=== PATIENT | male | born 1945 | race African-American/Black ===

== ENCOUNTER 2020-03-11 18:19 | Emergency (ER) | payer MEDICARE, OTHER ==
[~2020-03-11] VITALS: Ht 182.9 cm; Wt 90.7 kg
--- NOTE | 2020-03-11 18:32 | Emergency Room Report ---
History of Present Illness General Chief Complaint: Hypertension Source: Patient, EMS Present Illness HPI Patient is a 74-year-old male past medical history of hypertension who presents to the ER complaining of elevated blood pressure. Patient is a very poor historian. He is alert and oriented x3 was brought in from the front of his apartment complex by EMS. Patient states that his blood pressure has been high for the past several days. When I asked him how he knows he says he just knows. He denies having any headache, dizziness, chest pain or shortness of breath. He denies any focal weakness. Patient walks with a cane. When I asked him if he has been doing that for a long time he cannot give me a definitive answer. Patient also has lower extremity edema which she states that he does not know how long its been there for. Patient is unkept. 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: No Patient History Reviewed Nursing Documentation: PMH: Agreed; PSxH: Agreed Nursing Documentation-PMH Hx Hypertension: Yes Hx Asthma: Yes Review of Systems All Other Systems: limited - Poor historian Physical Exam Vital Signs Date Time Temp Pulse Resp B/P (MAP) Pulse Ox O2 Delivery O2 Flow Rate FiO2 03/11/20 18:14 98.4 84 14 164/96 (118) 97 Room Air Sp02 EP Interpretation: reviewed, normal General Appearance: no apparent distress, alert, non-toxic Head: normocephalic, atraumatic ENT: normal pharynx, no angioedema Neck: full range of motion, supple, no meningismus Respiratory: no respiratory distress, no accessory muscle use Cardiovascular #1: regular rate, rhythm Gastrointestinal: non tender, soft, no guarding, no rebound Rectal: deferred Musculoskeletal: other - Bilateral lower extremity edema left greater than right with left calf tenderness very dry skin of the bilateral lower extremities 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 Patient given 10 mg of IV hydralazine and blood pressure temporarily improved. While in the emergency room patient's blood pressure again elevated. Patient given a second dose of hydralazine. Patient's labs demonstrate no evidence for endorgan damage. Patient will be transferred for further treatment and evaluation of his malignant hypertension. Laboratory Tests Test 03/11/20 18:35 White Blood Count 9.2 K/UL (4.8-10.8) Red Blood Count 5.39 M/UL (4.70-6.10) Hemoglobin 15.4 G/DL (14.2-18.0) Hematocrit 48.2 % (42.0-52.0) Mean Corpuscular Volume 89 FL (80-99) Mean Corpuscular Hemoglobin 28.6 PG (27.0-31.0) Mean Corpuscular Hemoglobin Concent 32.0 G/DL (32.0-36.0) Red Cell Distribution Width 13.1 % (11.6-14.8) Platelet Count 157 K/UL (150-450) Mean Platelet Volume 9.2 FL (6.5-10.1) Neutrophils (%) (Auto) 55.9 % (45.0-75.0) Lymphocytes (%) (Auto) 21.9 % (20.0-45.0) Monocytes (%) (Auto) 7.6 % (1.0-10.0) Eosinophils (%) (Auto) 12.6 % (0.0-3.0) H Basophils (%) (Auto) 1.9 % (0.0-2.0) Prothrombin Time 11.3 SEC (9.30-11.50) Prothrombin Time INR 1.0 (0.9-1.1) Activated Partial Thromboplast Time 30 SEC (23-33) Sodium Level 137 MMOL/L (136-145) Potassium Level 4.4 MMOL/L (3.5-5.1) Chloride Level 100 MMOL/L (98-107) Carbon Dioxide Level 32 MMOL/L (21-32) Anion Gap 5 mmol/L (5-15) Blood Urea Nitrogen 10 mg/dL (7-18) Creatinine 0.8 MG/DL (0.55-1.30) Estimated Glomerular Filtration Rate > 60 mL/min (>60) Glucose Level 124 MG/DL (74-106) H Calcium Level 8.8 MG/DL (8.5-10.1) Magnesium Level 2.1 MG/DL (1.8-2.4) Total Bilirubin 0.5 MG/DL (0.2-1.0) Aspartate Amino Transferase (AST) 27 U/L (15-37) Alanine Aminotransferase (ALT) 16 U/L (12-78) Alkaline Phosphatase 88 U/L (46-116) Troponin I 0.017 ng/mL (0.000-0.056) Pro-B-Type Natriuretic Peptide 352 pg/mL (0-125) H Total Protein 8.2 G/DL (6.4-8.2) Albumin 3.8 G/DL (3.4-5.0) Globulin 4.4 g/dL Albumin/Globulin Ratio 0.9 (1.0-2.7) L EKG Diagnostic Results Troponin ordered: Yes When was troponin ordered?: Mar 11, 2020 EKG Time: 18:41 EP Interpretation: Eloisa Maynard MD Rhythm: other - Sinus tachycardia with PACs ST Segments: no acute changes ASA given to the pt in ED: No Rhythm Strip Diag. Results Rhythm Strip Time: 18:43 EP Interpretation: yes - Eloisa Maynard MD Rate: 97 bpm Rhythm: NSR, no PVC's, no ectopy Chest X-Ray Diagnostic Results Chest X-Ray Diagnostic Results : Chest X-Ray Ordered: Yes # of Views/Limited/Complete: 1 View Indication: Other - Elevated blood pressure EP Interpretation: Yes Interpretation: no consolidation, no effusion, no pneumothorax, no acute cardiopulmonary disease Impression: No acute disease Electronically Signed by: Eloisa Maynard MD Last Vital Signs Date Time Temp Pulse Resp B/P (MAP) Pulse Ox O2 Delivery O2 Flow Rate FiO2 03/11/20 18:14 98.4 84 14 164/96 (118) 97 Room Air Disposition: ADMITTED INPATIENT - [facility] Condition: Critical Physician Consult: Dr. Galvin Additional Instructions: Please note that this report is being documented using [employer] technology. This can lead to erroneous entry secondary to incorrect interpretation by the dictating instrument. Eloisa Maynard M.D. Mar 11, 2020 18:32
--- NOTE | 2020-03-11 18:42 | NUR ---
ED Nurse Note: Pt was found outside apartment complex stating that he felt blood pressure was high. BP was 165/64. Pt is alert and orientedx4, ambulatory. Pt has been seen by [facility]. IV established. Pt states he has bilateral knee pain 6/10. Bilateral leg edema non-pitting.
[2020-03-11 18:56] VITALS: BP 200/109
--- NOTE | 2020-03-11 19:17 | Diagnostic Imaging Report ---
EXAM: US Duplex Bilateral Lower Extremities Veins CLINICAL HISTORY: 74-year-old male past medical history of hypertension who presents to the ER complaining of elevated blood pressure. Patient is a very poor historian. He is alert and oriented x3 was brought in from the front of his apartment complex by EMS. Patient states that his blood pressure has been high for the past several days. When I asked him how he knows he says he just knows. He denies having any headache, dizziness, chest pain or shortness of breath. He denies any focal weakness. Patient walks with a cane. When I asked him if he has been doing that for a long time he cannot give me a definitive answer. Patient also has lower extremity edema which she states that he does not know how long its been there for. Patient is unkept. TECHNIQUE: Real-time duplex ultrasound scan of the bilateral lower extremity veins integrating B-mode two-dimensional vascular structure, Doppler spectral analysis, color flow Doppler imaging and compression. COMPARISON: No relevant prior studies available. FINDINGS: Right deep veins: Unremarkable. No DVT in the right common femoral, femoral, proximal deep femoral or popliteal veins. The veins demonstrate normal color flow, are normally compressible, with normal phasic flow and/or augmentation response. Right superficial veins: Unremarkable. No thrombus in the visualized right great saphenous vein. Left deep veins: Unremarkable. No DVT in the left common femoral, femoral, proximal deep femoral or popliteal veins. The veins demonstrate normal color flow, are normally compressible, with normal phasic flow and/or augmentation response. Left superficial veins: Unremarkable. No thrombus in the visualized left great saphenous vein. Soft tissues: No acute findings. No popliteal cyst. IMPRESSION: No venous thrombosis
[2020-03-11 19:22] LABS: BASOPHILS % (AUTO) 1.9 % (0.0-2.0); EOSINOPHILS % (AUTO) 12.6 % (0.0-3.0); HEMATOCRIT 48.2 % (42.0-52.0); HEMOGLOBIN 15.4 G/DL (14.2-18.0); LYMPHOCYTES % (AUTO) 21.9 % (20.0-45.0); MEAN CORPUSCULAR VOLUME 89 FL (80-99); MONOCYTES % (AUTO) 7.6 % (1.0-10.0); NEUTROPHILS % (AUTO) 55.9 % (45.0-75.0); PLATELET COUNT 157 K/UL (150-450); RED BLOOD COUNT 5.39 M/UL (4.70-6.10); RED CELL DISTRIBUTION WIDTH 13.1 % (11.6-14.8); WHITE BLOOD COUNT 9.2 K/UL (4.8-10.8)
[2020-03-11 19:34] VITALS: BP 162/73
[2020-03-11 19:41] LABS: ANION GAP 5 mmol/L (5-15); BLOOD UREA NITROGEN 10 mg/dL (7-18); CALCIUM 8.8 MG/DL (8.5-10.1); CARBON DIOXIDE 32 MMOL/L (21-32); CHLORIDE 100 MMOL/L (98-107); CREATININE 0.8 MG/DL (0.55-1.30); POTASSIUM 4.4 MMOL/L (3.5-5.1); SODIUM 137 MMOL/L (136-145)
[2020-03-11 19:51] LABS: ALANINE AMINOTRANSFERASE 16 U/L (12-78); ALBUMIN 3.8 G/DL (3.4-5.0); ALBUMIN/GLOBULIN RATIO 0.9 (1.0-2.7); ALKALINE PHOSPHATASE 88 U/L (46-116); ASPARTATE AMINO TRANSFERASE 27 U/L (15-37); BILIRUBIN,TOTAL 0.5 MG/DL (0.2-1.0)
--- NOTE | 2020-03-11 20:35 | Diagnostic Imaging Report ---
EXAM: CT Head Without Intravenous Contrast CLINICAL HISTORY: AMS TECHNIQUE: Axial computed tomography images of the head/brain without intravenous contrast. CTDI is 53.40 mGy and DLP is 957.30 mGy-cm. One or more of the following dose reduction techniques were used: automated exposure control, adjustment of the mA and/or kV according to patient size, use of iterative reconstruction technique. Coronal and sagittal reformatted images were created and reviewed. COMPARISON: No relevant prior studies available. FINDINGS: Brain: Moderate age-related generalized brain volume loss and chronic small vessel ischemic changes. No hemorrhage. Ventricles: Unremarkable. No ventriculomegaly. Bones/joints: Unremarkable. No acute fracture. Soft tissues: Unremarkable. Sinuses: Moderate to severe sinus disease, worse on the left. Mastoid air cells: Unremarkable as visualized. No mastoid effusion. Auditory system: Near occlusive bilateral cerumen IMPRESSION: No acute findings in the head/brain.
--- NOTE | 2020-03-11 21:08 | NUR ---
ED Nurse Note: Patient unable to provide urine sample at this time, provided urinal to patient and reminded to provide urine sample, pt verbalized understanding.
[2020-03-11 22:34] VITALS: BP 144/68
--- NOTE | 2020-03-11 23:37 | NUR ---
ED Nurse Note: Report given to ALEX Ulloa at [facility].
[2020-03-12 00:45] VITALS: BP 124/68
--- NOTE | 2020-03-12 00:45 | NUR ---
ER DISCHARGE NOTE: Patient is cleared to be transferred to [facility] per ERMD. Patient aao x 4 and ambulatory upon departure. Patient transported via gurney accompanied by ambulance personnel [facility] [address]. Patient packet provided. Patient belongings transported with patient. No acute distress noted upon departure, VSS.
[2020-03-12 01:42] LABS: APPEARANCE,URINE CLEAR; BILIRUBIN, URINE NEGATIVE (NEGATIVE); COLOR,URINE PALE YELLOW; GLUCOSE, URINE (UA) NEGATIVE (NEGATIVE); KETONES,URINE NEGATIVE (NEGATIVE); LEUKOCYTE ESTERASE ,URINE NEGATIVE (NEGATIVE); NITRITE,URINE NEGATIVE (NEGATIVE); PH,URINE 8 (4.5-8.0); PROTEIN,URINE NEGATIVE (NEGATIVE); UROBILINOGEN,URINE NORMAL MG/DL (0.0-1.0)
--- NOTE | 2020-03-12 17:47 | Diagnostic Imaging Report ---
Indication: Shortness of breath Technique: One view of the chest Comparison: none Findings: Patient's chin obscures the upper mediastinum. The lungs and pleural spaces are clear. The heart size is normal Impression: No acute process
--- NOTE | 2020-03-13 13:02 | Cardiology Report ---
APPROVED REPORT EKG Measurement Heart [id number] MD [id number] <Conclusion> Sinus tachycardia with premature atrial complexes Biatrial enlargement Abnormal ECG
== END 2020-03-12 00:45 | disposition short-term general hospital (02) ==
LOC: EDBD 18:19 → EMR 19:52
DX: I10 Essential (primary) hypertension (principal); J45.909 Unspecified asthma, uncomplicated; Z88.5 Allergy status to narcotic agent; Z88.2 Allergy status to sulfonamides
CPT/HCPCS: 36415; 70450; 71045; 80053; 81003; 83735; 83880; 84484; 85025; 85610; 85730; 93005; 93970; 96374; 96376; 99284; J0360